=== PATIENT | female | born 1965 | race Caucasian/White ===

== ENCOUNTER 2019-02-11 11:29 | Emergency (ER) | payer OTHER ==
[~2019-02-11] VITALS: Ht 157.5 cm; Wt 66.7 kg
[~2019-02-11 11:29] MED LIST: AMOXICILLIN500 M1 PO; BACTRIM DS TAB1 EACH PO; ESTRACE0.5 MG; IBUPROFEN 600600 M1 PO; NORCO 5-325 TA1 EACH PO; PREDNISONE50 MG PO; SYNTHROID25 MCG
[2019-02-11 13:12] LABS: ABSOLUTE NEUTROPHILS 6.2 thou/uL (1.4-8.2); BASOPHILS 1.4 % (0.0-2.0); EOSINOPHILS 2.1 % (0.0-3.0); HEMATOCRIT 45.2 % (37.0-47.0); HEMOGLOBIN 15.3 gm/dL (12.0-15.0); LYMPHOCYTES 27.2 % (24.0-44.0); MCH 30.2 pg (26.0-34.0); MCHC 33.8 g/dL (28.0-37.0); MCV 89.4 fL (80.0-100.0); MONOCYTES 5.6 % (1.0-8.0); POLYS 63.7 % (36.0-66.0); RBC 5.06 mil/uL (4.20-5.00); RDW 13.9 % (10.5-14.5); WBC 9.8 thou/uL (4.0-11.0)
[2019-02-11 13:22] LABS: CALCIUM 9.1 mg/dL (8.5-10.1); CREATININE 0.9 mg/dL (0.6-1.0); POTASSIUM 3.6 mmol/L (3.5-5.1)
[2019-02-11 13:28] LABS: ALBUMIN 3.8 g/dL (3.4-5.0); TOTAL BILIRUBIN 0.4 mg/dL (<0.1-1.0); TOTAL PROTEIN 7.8 g/dL (6.4-8.2)
[2019-02-11 13:43] LABS: PLATELET COUNT 264 thou/uL (150-400)
[2019-02-11] MEDS ORDERED: ZPAK PO (14:05)
[2019-02-11] MEDS ORDERED: TESSALON PERLE100 MG PO (14:05)
[2019-02-11] MEDS ORDERED: HYDROCODONE-AP1 EAC6 PO (14:05)
[2019-02-11] MEDS ORDERED: VENTOLIN HFA 1818 GM INH (14:05)
[2019-02-11 14:22] VITALS: BP 130/57
== END 2019-02-11 14:25 | disposition home or self-care (01) ==
LOC: ER 11:29
PROVIDERS: Physician Assistant
DX: J18.9 Pneumonia, unspecified organism (principal); E07.9 Disorder of thyroid, unspecified; F17.210 Nicotine dependence, cigarettes, uncomplicated; Z90.710 Acquired absence of both cervix and uterus

== ENCOUNTER → 2019-06-29 | Outpatient (CLI) | payer OTHER ==
[~2019-06-29] MED LIST changes: +HYDROCODONE-AP1 EAC6 PO; +TESSALON PERLE100 MG PO; +VENTOLIN HFA 1818 GM INH; +ZPAK PO
== END ==
LOC: RAD 10:13
DX: Z12.31 Encounter for screening mammogram for malignant neoplasm of breast (principal)

== ENCOUNTER → 2019-07-06 | Outpatient (CLI) | payer OTHER | LOC: ULTRA 04:10 | DX: N60.02 Solitary cyst of left breast (principal); N64.89 Other specified disorders of breast ==

== ENCOUNTER → 2020-01-25 | Outpatient (CLI) | payer OTHER | LOC: RAD 09:20 → BC 22:08 | DX: R92.8 Other abnormal and inconclusive findings on diagnostic imaging of breast (principal) ==

== ENCOUNTER → 2021-07-28 | Outpatient (CLI) | payer OTHER | LOC: BC 10:50 | PROVIDERS: ATTEND Family Medicine | DX: Z12.31 Encounter for screening mammogram for malignant neoplasm of breast (principal); N64.89 Other specified disorders of breast ==